=== PATIENT | female | born 1995 | race Caucasian/White ===

== ENCOUNTER 2020-07-18 17:59 | Emergency (ER) | payer BC ==
[~2020-07-18] VITALS: Ht 160 cm; Wt 69.9 kg
[2020-07-18 18:03] VITALS: BP_SYST 106
--- NOTE | 2020-07-18 18:08 | NUR ---
Patient to ER bed 6 to gown for evaluation. Side rails up. Report given to VASYL Napier.
--- NOTE | 2020-07-18 18:12 | NUR ---
ER Dr. Waite at bedside examining patient.
[2020-07-18] MEDS ORDERED: cefTRIAXone 1 GM in LIDOCAINE 1%, 20 ML MDV 2.1 ML IM ONE (18:15)
[2020-07-18] MEDS ORDERED: DIPH-TET-PERTUS Vaccine 0.5 ML VIAL (ADACEL) I.M. ONE (18:15)
--- NOTE | 2020-07-18 18:25 | NUR ---
Pt is alert and oriented. placed to [facility]. Wounds to yara. lower arms and hands noted. Pt states that she was bitten by her dog. [facility] animal bite report completed.
[2020-07-18] MEDS ORDERED: LIDOCAINE 1% 10 MG/ML, 20 ML MDV INJ ONE (18:30)
[2020-07-18] MEDS ORDERED: BACITRACIN ZINC 15 GM TOPICAL OINTMENT TP ONE (18:30)
--- NOTE | 2020-07-18 18:40 | NUR ---
Wounds cleaned with betadine and saline.
[2020-07-18] MEDS ORDERED: BACITRACIN 1 GM OINT TP ONE (19:03)
[2020-07-18 19:25] VITALS: BP_SYST 106
--- NOTE | 2020-07-18 19:25 | NUR ---
Patient given written and verbal discharge instructions and verbalizes understanding. DR. JOHNATHAN MAY MD discussed with patient the results and treatment provided. Patient in stable condition. ID arm band removed. Rx of AUGMENTIN AND NAPROSYN given. Patient educated on pain management and to follow up with PMD. Pain Scale 0/10. Opportunity for questions provided and answered. Medication side effect fact sheet provided.
== END 2020-07-18 19:25 | disposition home or self-care (01) ==
LOC: SED 17:59
DX: S51.812A Laceration without foreign body of left forearm, initial encounter (principal); W54.0XXA Bitten by dog, initial encounter; Y93.89 Activity, other specified; Y92.89 Other specified places as the place of occurrence of the external cause; Y99.8 Other external cause status
CPT/HCPCS: 12001; 73090; 90471; 90715; 96372; 99284; J0696; J2001

== ENCOUNTER 2020-07-20 11:43 | Emergency (ER) | payer BC ==
[~2020-07-20] VITALS: Ht 172.7 cm; Wt 68.0 kg
[2020-07-20 11:53] VITALS: BP_SYST 142
--- NOTE | 2020-07-20 12:15 | NUR ---
Patient to ER bed 01 to gown for evaluation. Side rails up.
--- NOTE | 2020-07-20 12:25 | NUR ---
ER at bedside examining patient.
[2020-07-20] MEDS ORDERED: cefTRIAXone 1 GM in LIDOCAINE 1%, 20 ML MDV 2.1 ML IM ONE (12:30)
--- NOTE | 2020-07-20 12:30 | NUR ---
pt arrives from home for a wound check. Pt has stitches over yara thumb. Pt is here for a wound check
--- NOTE | 2020-07-20 12:48 | NUR ---
medicated w/ Rocephin IM per MD order
[2020-07-20 12:50] VITALS: BP_SYST 142
--- NOTE | 2020-07-20 12:50 | NUR ---
Patient given written and verbal discharge instructions and verbalizes understanding. ER MD discussed with patient the results and treatment provided. Patient in stable condition. ID arm band removed. Patient educated on pain management and to follow up with PMD. Pain Scale 0/10. Opportunity for questions provided and answered. Medication side effect fact sheet provided.
== END 2020-07-20 12:50 | disposition home or self-care (01) ==
LOC: SED 11:43
DX: L03.113 Cellulitis of right upper limb (principal)
CPT/HCPCS: 96372; 99283; J0696; J2001